=== PATIENT | male | born 1985 | race African-American/Black ===

== ENCOUNTER → 2024-08-02 12:43 | Outpatient (CLI) | payer OTHER, SELFPAY ==
--- NOTE | 2024-08-02 12:47 | DI.MRI.S_ITS ---
PROCEDURE: MR TMJ WO CON INDICATIONS: headache/jaw pain TECHNIQUE: Axial T1 spin echo, coronal and sagittal PD fast spin echo through the temporomandibular joints, in both the closed- and open-mouth positions. COMPARISON: None. FINDINGS: Image quality: Excellent. Right: Joint is normally aligned on closed and open-mouth positioning. Articular disk demonstrates normal location and morphology. No bony erosions or osteophytes. Left: Joint is normally aligned on closed and open-mouth positioning. Articular disk demonstrates normal location and morphology. No bony erosions or osteophytes. IMPRESSION: Normal MRI of the temporomandibular joints Approved by: Harpal Oconnell M.D. on 08/03/2024 at 10:05
--- NOTE | 2024-08-02 12:47 | DI.MRI.S_ITS ---
PROCEDURE: MR HEAD/BRAIN WO CON INDICATIONS: headache/jaw pain TECHNIQUE: Noncontrast axial T1 spin echo, axial T2 fast spin echo, sagittal and axial FLAIR, coronal T2 fast spin echo, axial gradient echo, axial diffusion and ADC through the brain. COMPARISON: None. FINDINGS: CSF Spaces: Basal cisterns are patent. No extra-axial fluid collections. Ventricles are normal in size and shape. Brain: No intracranial masses or hemorrhage. Barker/white matter interface is normal. Brainstem appears normal. Diffusion-weighted sequence is unremarkable without evidence of acute infarct. Normal intravascular flow voids are present. Nonspecific white matter hyperintensities all measure less than 3 mm scattered throughout both cerebral hemispheres Skull and face: Calvarium has normal marrow signal. Orbits appear normal. Sinuses: Sinuses and mastoids are clear. IMPRESSION: Scattered nonspecific small white matter hyperintensities. Differential possibilities include early chronic ischemic change, migrainous vasculopathy, vasculitis, and sequelae of prior traumatic or infectious/inflammatory process Approved by: Harpal Oconnell M.D. on 08/02/2024 at 18:05
== END ==
DX: R51.9 Headache, unspecified (principal); R68.84 Jaw pain
CPT/HCPCS: 70336; 70551